=== PATIENT | male | born 1955 | race Caucasian/White ===

== ENCOUNTER → 2019-08-28 | Outpatient (CLI) | payer BC | LOC: COL.VAS 13:18 | DX: I10 Essential (primary) hypertension (principal); I34.0 Nonrheumatic mitral (valve) insufficiency; R06.02 Shortness of breath ==

== ENCOUNTER → 2020-09-27 | Outpatient (CLI) | payer BC | LOC: COL.VAS 12:28 | DX: I27.20 Pulmonary hypertension, unspecified (principal) ==

== ENCOUNTER 2024-02-21 09:43 | Emergency (ER) | payer MEDICARE, BC ==
[~2024-02-21] VITALS: Ht 193 cm; Wt 136.4 kg
[2024-02-21 09:44] VITALS: TEMP 98.4
[2024-02-21 10:03] LABS: BASO % 0.5 % (0.0-2.0); EOS # 0.1 K/mm3 (0.0-0.7); EOS % 3.2 % (0.0-4.0); GRAN % 67.8 % (42.2-75.2); HEMOGLOBIN 10.9 g/dl (13.5-18.0); LYMPH # 0.8 K/mm3 (1.2-3.4); MEAN CELL VOLUME 96 fl (80.0-100.0); MEAN CORPUSCULAR HEMOGLOBIN 32 pg (27-31); MEAN CORPUSCULAR HGB CONC 33 g/dl (33.0-37.0); MEAN PLATELET VOLUME 9.2 fl (7.4-10.4); MONO # 0.5 K/mm3 (0.1-0.6); MONO % 10.6 % (1.7-9.3); PLATELET COUNT 196 K/mm3 (130-400); RED BLOOD COUNT 3.44 M/mm3 (4.20-5.60); REDCELL DISTRIBUTION WIDTH-CV 13.4 % (11.5-14.5)
[2024-02-21 10:06] LABS: HEMATOCRIT 32.9 % (42.0-52.0)
[2024-02-21 10:08] LABS: INR 2.6 (0.8-3.0); PROTHROMBIN TIME 27.7 SECONDS (9.7-12.8)
[2024-02-21 10:26] LABS: ALBUMIN 3.5 g/dL (3.4-4.8); BILIRUBIN,TOTAL 0.5 mg/dL (0.2-1.2); CALCIUM 8.9 mg/dL (8.4-10.2); CREATININE, serum 1.31 mg/dL (0.72-1.25); POTASSIUM 3.9 mEq/L (3.5-4.5); TOTAL PROTEIN 7.3 g/dl (6.2-8.1)
[2024-02-21 10:58] VITALS: BP 111/90; PULSE 63
== END 2024-02-21 11:07 | disposition home or self-care (01) ==
LOC: COL.ER 09:43
PROVIDERS: Personal Emergency Response Attendant
DX: S09.90XA Unspecified injury of head, initial encounter (principal); R00.1 Bradycardia, unspecified; J44.9 Chronic obstructive pulmonary disease, unspecified; Z99.81 Dependence on supplemental oxygen; Z79.01 Long term (current) use of anticoagulants; W01.198A Fall on same level from slipping, tripping and stumbling with subsequent striking against other object, initial encounter; Y93.01 Activity, walking, marching and hiking

== ENCOUNTER 2024-04-14 16:27 | Inpatient (IN) | payer MEDICARE ==
[~2024-04-14] VITALS: Ht 190.5 cm; Wt 139.9 kg
[2024-04-14 16:44] LABS: BASO % 0.6 % (0.0-2.0); EOS # 0.2 K/mm3 (0.0-0.7); EOS % 4.2 % (0.0-4.0); GRAN # 3.4 K/mm3 (1.4-6.5); GRAN % 68.5 % (42.2-75.2); HEMOGLOBIN 10.5 g/dl (13.5-18.0); LYMPH # 0.8 K/mm3 (1.2-3.4); LYMPH % 15.3 % (20.0-51.0); MEAN CELL VOLUME 98 fl (80.0-100.0); MEAN CORPUSCULAR HEMOGLOBIN 33 pg (27-31); MEAN CORPUSCULAR HGB CONC 34 g/dl (33.0-37.0); MEAN PLATELET VOLUME 9.7 fl (7.4-10.4); MONO # 0.5 K/mm3 (0.1-0.6); MONO % 10.6 % (1.7-9.3); PLATELET COUNT 177 K/mm3 (130-400); RED BLOOD COUNT 3.17 M/mm3 (4.20-5.60); REDCELL DISTRIBUTION WIDTH-CV 12.7 % (11.5-14.5)
[2024-04-14 16:46] LABS: HEMATOCRIT 30.9 % (42.0-52.0)
[2024-04-14 17:49] LABS: INR 2.6 (0.8-3.0); PROTHROMBIN TIME 28.2 SECONDS (9.7-12.8)
[2024-04-14 18:05] LABS: ALBUMIN 3.3 g/dL (3.4-4.8); BILIRUBIN,TOTAL 0.2 mg/dL (0.2-1.2); CALCIUM 9.6 mg/dL (8.4-10.2); CREATININE, serum 1.34 mg/dL (0.72-1.25); POTASSIUM 4.1 mEq/L (3.5-4.5); TOTAL PROTEIN 6.6 g/dl (6.2-8.1)
[2024-04-14] MEDS ORDERED: Phytonadione 10 MG in NS 50 ML IV ONE (19:00)
[2024-04-14] MEDS ORDERED: hydrALAZINE 20 MG/ML 1 ML VIAL IV PRN (19:15)
[2024-04-14] MEDS ORDERED: Acetaminophen 325 MG TAB PO PRN (19:15)
[2024-04-14] MEDS ORDERED: Ondansetron 4 MG/2 ML VIAL IV PRN (19:15)
[2024-04-14] MEDS ORDERED: ABILIFY5 MG PO (19:19)
[2024-04-14] MEDS ORDERED: TYLENOL 325MG325 MG PO (19:20)
[2024-04-14] MEDS ORDERED: PROAIR HFA0.09 MG/AC IH (19:21)
[2024-04-14] MEDS ORDERED: LIPITOR20 MG PO (19:22)
[2024-04-14] MEDS ORDERED: ASPIRIN E.C. 8181 MG PO (19:22)
[2024-04-14] MEDS ORDERED: COREG 3.123.125 MG/T PO (19:23)
[2024-04-14] MEDS ORDERED: KLONOPIN 0.5MG0.5 MG PO (19:27)
[2024-04-14] MEDS ORDERED: LEXAPRO20 MG PO (19:28)
[2024-04-14] MEDS ORDERED: LEXAPRO 10MG10 MG PO (19:28)
[2024-04-14] MEDS ORDERED: TRELEGY ELLIPT1 EAC1 IH (19:31)
[2024-04-14] MEDS ORDERED: LASIX 20MG TABL20 MG PO (19:31)
[2024-04-14] MEDS ORDERED: MUCINEX 60600 MG/TA1 PO (19:32)
[2024-04-14] MEDS ORDERED: AVAPRO300 M1 PO (19:33)
[2024-04-14] MEDS ORDERED: LAMICTAL200 MG PO (19:33)
[2024-04-14] MEDS ORDERED: SINGULAIR 110 MG/TAB PO ×2 (19:34→19:35)
[2024-04-14] MEDS ORDERED: KEPPRA1000 MG PO (19:34)
[2024-04-14] MEDS ORDERED: DILANTIN 100MG100 MG PO (19:36)
[2024-04-14] MEDS ORDERED: CIALIS5 MG PO (20:03)
[2024-04-14] MEDS ORDERED: DILANTIN KAPSEA30 MG PO (20:06)
[2024-04-14] MEDS ORDERED: VITAMIN D31000 I1 PO (20:06)
[2024-04-14] MEDS ORDERED: COUMADIN4 MG PO (20:07)
[2024-04-14] MEDS ORDERED: Albuterol/Ipratropium 3 MG-0.5 MG/3 ML Neb Soln IH PRN (20:30)
[2024-04-14] MEDS ORDERED: levETIRAcetam 500 MG TAB PO SCH (21:00)
[2024-04-14] MEDS ORDERED: lamoTRIgine 100 MG TAB PO SCH (21:00)
[2024-04-14] MEDS ORDERED: Montelukast 10 MG TAB PO SCH (21:00)
[2024-04-14] MEDS ORDERED: clonazePAM 0.5 MG TAB PO SCH (21:00)
[2024-04-14] MEDS ORDERED: Carvedilol 3.125 MG TAB PO SCH (21:00)
[2024-04-14] MEDS ORDERED: Atorvastatin 20 MG TAB PO SCH (21:00)
[2024-04-14] MEDS ORDERED: Sennosides/Docusate 8.6-50 MG TAB PO SCH (21:00)
[2024-04-14 22:25] VITALS: BP 100/49; PULSE 58; TEMP 97.7
[2024-04-14 22:40] VITALS: BP 119/50; PULSE 59; TEMP 97.5
[2024-04-14 23:10] VITALS: BP 120/43; PULSE 57; TEMP 97.5
[2024-04-15] VITALS (16 sets, daily range): BP systolic 105–124; BP diastolic 40–69; PULSE 60–65; TEMP 97.4–98.2
--- NOTE | 2024-04-15 01:38 | NUR ---
RECEIVED PT FROM THE ED AND HE IS ACCOMPANIED BY HIS DAUGHTER. HE IS ABLE TO MOVE HIMSELF OVER FROM THE STRETCHER TO THE BED. HE IS ALERT AND ORIENTED. IS ABLE TO MOVE ALL EXTREMITIES EQUALLY. HIS PUPILS ARE EQUAL AND REACTIVE AT THIS TIME. HE HAS GLASSES IN PLACE FOR READING. HE IS ON 2 L NC. HE IS ABLE TO USE THE URINIAL WITH NO ASSISTANCE. DID EDUCATE THE PATIENT WE WILL NOT BE GETTING OUT OF THE BED AT THIS TIME. ALSO HE IS TO RECEIVE A UNIT OF [facility]FP AND WE DISCUSSED WHAT IT WAS FOR AND HE WILL NEED TO SIGN A CONSENT FORM. DISCUSSED WE WILL BE PERFORMING EVERY 2 HOUR NEURO CHECKS TO WATCH FOR ANY CHANGES WITH HIS HEAD BLEED. HE IS AGREEABLE AND VERY PLEASANT. HE HAS ONE IV SITE LOCKED. CALL OMEGA IS AT THE BEDSIDE.
[2024-04-15] MEDS ORDERED: Budesonide Neb Susp 0.5 MG/2 ML AMP IH SCH (07:00)
[2024-04-15 07:43] LABS: BASO % 0.5 % (0.0-2.0); EOS # 0.2 K/mm3 (0.0-0.7); EOS % 4.6 % (0.0-4.0); GRAN # 2.5 K/mm3 (1.4-6.5); GRAN % 62.5 % (42.2-75.2); LYMPH # 0.8 K/mm3 (1.2-3.4); LYMPH % 19.5 % (20.0-51.0); MEAN CELL VOLUME 96 fl (80.0-100.0); MEAN CORPUSCULAR HGB CONC 34 g/dl (33.0-37.0); MEAN PLATELET VOLUME 9.4 fl (7.4-10.4); MONO # 0.5 K/mm3 (0.1-0.6); MONO % 12.4 % (1.7-9.3); PLATELET COUNT 161 K/mm3 (130-400); RED BLOOD COUNT 3.01 M/mm3 (4.20-5.60); REDCELL DISTRIBUTION WIDTH-CV 12.5 % (11.5-14.5)
[2024-04-15 07:53] LABS: INR 1.5 (0.8-3.0); PROTHROMBIN TIME 16.3 SECONDS (9.7-12.8)
[2024-04-15 07:55] LABS: CALCIUM 9.6 mg/dL (8.4-10.2); CREATININE, serum 1.2 mg/dL (0.72-1.25)
[2024-04-15 08:08] LABS: HEMATOCRIT 28.8 % (42.0-52.0); HEMOGLOBIN 9.8 g/dl (13.5-18.0); MEAN CORPUSCULAR HEMOGLOBIN 33 pg (27-31)
[2024-04-15] MEDS ORDERED: Fluticasone/Umeclidinium/Vilanterol **** subs to Budesonide + Umeclid/Vilant IH SCH (09:00)
[2024-04-15] MEDS ORDERED: ARIPiprazole 5 MG TAB PO SCH (09:00)
[2024-04-15] MEDS ORDERED: [UNRECOGNIZED DRUG - REMARK] PO SCH (09:00)
[2024-04-15] MEDS ORDERED: Furosemide 20 MG TAB PO SCH (09:00)
[2024-04-15] MEDS ORDERED: Escitalopram 10 MG TAB PO SCH ×2 (09:00→11:45)
[2024-04-15] MEDS ORDERED: Losartan 50 MG TAB PO SCH (09:00)
[2024-04-15] MEDS ORDERED: Umeclidinium/Vilanterol 62.5-25 MCG INHALATION/INHALER IH SCH (09:00)
[2024-04-15] MEDS ORDERED: Prothrombin Complex Human 2,000 UNITS in Water For Injection,Sterile 80 ML IV SCH (10:00)
--- NOTE | 2024-04-15 10:00 | NUR ---
Patient resting in bed, alert and oriented x 4, VSS. Getting 2-3L O2 NC, his baseline. Telemetry in place. Denies any pain or discomfort. Assessment completed, meds given. No further needs at this time. Call light within reach. Bed alarm on.
--- NOTE | 2024-04-15 10:09 | NUR ---
Initial visit; Patient thanked Credit Coordinator for looking in on him this morning and wishing him well. Patient had no spiritual needs to address this morning. Credit Coordinator wished him well.
[2024-04-15] MEDS ORDERED: guaiFENesin 200 MG TAB PO SCH (14:00)
[2024-04-15] MEDS ORDERED: Iohexol 300 - 100 ML VIAL IV ONE (14:48)
[2024-04-15] MEDS ORDERED: NS 100 ML IV SCH (14:49)
[2024-04-15 15:26] LABS: INR 1.5 (0.8-3.0); PROTHROMBIN TIME 15.7 SECONDS (9.7-12.8)
--- NOTE | 2024-04-15 15:44 | NUR ---
THIS RN IS TAKING OVER CARE FOR THIS PATIENT. REPORT RECEIVED FROM RAMONA BAZZI. PATIENT IS RESTING IN BED. ALERT AND ORIENTED. DAUGHTER AT BEDSIDE. DENIES NEEDS OR CONCERNS AT THIS TIME.
--- NOTE | 2024-04-15 15:45 | NUR ---
Report given to Juni BAZZI.
[2024-04-15] MEDS ORDERED: Phytonadione (Vitamin K) 5 MG/5 ML Oral Susp PO ONE (16:30)
--- NOTE | 2024-04-15 17:22 | NUR ---
Representative Personal Service entered patient's room and patient was on a phone call. Patient requested SW speak with his daughter, Tejal (ph#[phone]) out in the hallway. Per Tejal, patient lives at assisted living at [facility] and sees Dr. Rodriguez for primary care. Patient uses [facility] for medications and also has a walker at home for ambulation. Patient also uses continuous oxygen at baseline. When asked about ADLS, Tejal stated patient does "okay" and has assistance when needed. Patient has DPOA-HC in EMR designating Tejal. CHUNG inquired about discharge plan and Tejal advised patient will likely want to return to [place] and she stated he was getting therapy services from [facility]. Discharge Plan; Return to [facility] [place]
--- NOTE | 2024-04-15 20:21 | NUR ---
UPON SHIFT ASSESSMENT, BILL WAS AWAKE IN BED AND AXO X4. EXP &INSP WHEEZES AUDIBLE AND PRODUCTIVE COUGH NOTED. ASSESSMENT QUESTIONS REVEALED SLIGHT MEMORY DEFICIT. NEUROS WNL AND VS ARE WNL. O2 NC 2L AND NO INCREASED WOB NOTED. CALL LIGHT WITHIN REACH BED ALARM ON.
[2024-04-15] MEDS ORDERED: guaiFENesin ER 600 MG **** subs to guaiFENesin 200 MG PO SCH (21:00)
[2024-04-16] VITALS (10 sets, daily range): BP systolic 95–115; BP diastolic 57–87; PULSE 61–79; TEMP 97.4–98.3
--- NOTE | 2024-04-16 02:30 | NUR ---
NEUROS WNL. PATIENT RESTING SUPINE. WAS ABLE TO SHIFT POSITION INDEPENDENTLY-SKIN ASSESSMENT PERFORMED. SKIN NORMAL.
--- NOTE | 2024-04-16 04:32 | NUR ---
CALL PLACED TO HOSPITALIST LUPILLO CONCERNING PREVIOUS ORDER TO TRANSFUSE PLASMA. TORB TO HOLD TRANSFUSION UNTIL A.M. INR RESULTED GIVEN.
[2024-04-16 05:29] LABS: BASO % 0.2 % (0.0-2.0); EOS # 0.2 K/mm3 (0.0-0.7); EOS % 4.1 % (0.0-4.0); GRAN # 2.9 K/mm3 (1.4-6.5); GRAN % 65.8 % (42.2-75.2); HEMATOCRIT 27.1 % (42.0-52.0); HEMOGLOBIN 9.2 g/dl (13.5-18.0); LYMPH # 0.8 K/mm3 (1.2-3.4); LYMPH % 18.2 % (20.0-51.0); MEAN CELL VOLUME 94 fl (80.0-100.0); MEAN CORPUSCULAR HEMOGLOBIN 32 pg (27-31); MEAN CORPUSCULAR HGB CONC 34 g/dl (33.0-37.0); MONO # 0.5 K/mm3 (0.1-0.6); MONO % 11.5 % (1.7-9.3); PLATELET COUNT 147 K/mm3 (130-400); RED BLOOD COUNT 2.88 M/mm3 (4.20-5.60); REDCELL DISTRIBUTION WIDTH-CV 12.3 % (11.5-14.5)
[2024-04-16 05:33] LABS: INR 1.3 (0.8-3.0); PROTHROMBIN TIME 14.1 SECONDS (9.7-12.8)
--- NOTE | 2024-04-16 05:38 | NUR ---
CALL PLACED TO HOSPITALIST LUPILLO, INR RESULTED-1.3. TORB TO CONTINUE HOLD ON PLASMA TRANSFUSION GIVEN-UNIT NOT TRANSFUSED AT THIS TIME.
[2024-04-16 05:50] LABS: CALCIUM 9.4 mg/dL (8.4-10.2); CREATININE, serum 1.1 mg/dL (0.72-1.25); POTASSIUM 4.3 mEq/L (3.5-4.5)
--- NOTE | 2024-04-16 08:00 | NUR ---
Patient laying in bed, A&Ox4. VSS 2L NC O2. VSS. IV CDI. SCD bilateral legs. Denies pain and discomfort. Seizre precautions in place. Nurse ordered breakfast for the patient. No further needs expressed. Call light within reach. Bed alarm on
[2024-04-16] MEDS ORDERED: Cholecalciferol (Vit D3) 1000 Units TAB PO SCH (09:00)
[2024-04-16] MEDS ORDERED: Escitalopram 10 MG TAB PO SCH (09:00)
--- NOTE | 2024-04-16 20:18 | NUR ---
PATIENT RESTING IN BED WATCHING TV. DENIES ANY PAIN AT THIS TIME. RESPIRATORY THERAPY AT BEDSIDE FOR BREATHING TREATMENT. CALL LIGHT IS WITHIN REACH. BED IS LOCKED AND IN LOW POSITION.
[2024-04-17] VITALS (7 sets, daily range): BP systolic 102–122; BP diastolic 54–65; PULSE 61–69; TEMP 98–98.3
[2024-04-17 05:49] LABS: HEMATOCRIT 25.4 % (42.0-52.0); HEMOGLOBIN 8.8 g/dl (13.5-18.0)
[2024-04-17] MEDS ORDERED: FERROUS SU325 MG/TAB PO (08:19)
[2024-04-17] MEDS ORDERED: Ferrous Sulfate 325 MG TAB PO SCH (09:00)
--- NOTE | 2024-04-17 09:48 | NUR ---
Patient is on chair, alert and oriented x 4, VSS. Denies any pain or discomfort. Just worked with OT. Assessment completed, meds given. No further needs at this time. Call [facility] within reach.
--- NOTE | 2024-04-17 11:09 | NUR ---
Technical Cable Jointer spoke with Hospitalist who rounded on patient and discussed a SNF stay with patient, who is agreeable to this plan. CHUNG contacted [facility] and faxed clinical updates with discharge orders. [facility] advised they have a bed available for patient and can pickling solution maker at 1300. CHUNG provided transport time to patient's daughter, Tejal who is also agreeable to plan. CHUNG met with patient to present and review IM form. Patient verbalized understanding and is agreeable with discharge plan to SNF today at [facility]. CHUNG placed form in chart and provided copy to patient. Discharge Plan: [facility]
--- NOTE | 2024-04-17 11:35 | NUR ---
Staff reviewed COPD diagnosis and signs and symptoms of exacerbation. Reviewed the [employer] action plan/Zone sheet for COPD and discussed specific actions the patient can take to reduce risk of further COPD exacerbation. Referral sent to [facility] with patient's permission. Staff will follow up with patient's daughter (Tejal) to see about scheduling / transportation into program. Contact information given for the department.
--- NOTE | 2024-04-17 12:53 | NUR ---
Report given to JLUIS Griffith. IV access removed. 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 Pt ready.
== END 2024-04-17 13:00 | DRG 86 ==
LOC: COL.ER 16:27 → MEDICAL 19:01
PROVIDERS: Emergency Medicine; Internal Medicine; Physician Assistant; ADMIT Internal Medicine
PROC: 30233K1 Transfusion of Nonautologous Frozen Plasma into Peripheral Vein, Percutaneous Approach (ICD-10-PCS; principal; 2024-04-14)
DX: S06.6X0A Traumatic subarachnoid hemorrhage without loss of consciousness, initial encounter (principal); J96.11 Chronic respiratory failure with hypoxia; I10 Essential (primary) hypertension; E78.5 Hyperlipidemia, unspecified; E66.01 Morbid (severe) obesity due to excess calories; J44.9 Chronic obstructive pulmonary disease, unspecified; F41.9 Anxiety disorder, unspecified; F32.A Depression, unspecified; K21.9 Gastro-esophageal reflux disease without esophagitis; G47.33 Obstructive sleep apnea (adult) (pediatric); R59.0 Localized enlarged lymph nodes; G40.909 Epilepsy, unspecified, not intractable, without status epilepticus; R91.8 Other nonspecific abnormal finding of lung field; D64.9 Anemia, unspecified; R40.2412 Glasgow coma scale score 13-15, at arrival to emergency department; J32.8 Other chronic sinusitis; W01.0XXA Fall on same level from slipping, tripping and stumbling without subsequent striking against object, initial encounter; Z86.711 Personal history of pulmonary embolism; Z79.01 Long term (current) use of anticoagulants; Y93.89 Activity, other specified; Y92.89 Other specified places as the place of occurrence of the external cause; Z99.81 Dependence on supplemental oxygen; Z79.899 Other long term (current) drug therapy; Z79.82 Long term (current) use of aspirin; Z90.49 Acquired absence of other specified parts of digestive tract; Z68.38 Body mass index [BMI] 38.0-38.9, adult
CPT/HCPCS: J3430; Q9967

== ENCOUNTER 2024-04-17 18:40 | Emergency (ER) | payer MEDICARE ==
[~2024-04-17] VITALS: Ht 182.9 cm; Wt 138.6 kg
[~2024-04-17 18:40] MED LIST: ABILIFY5 MG PO; ASPIRIN E.C. 8181 MG PO; AVAPRO300 M1 PO; CIALIS5 MG PO; COREG 3.123.125 MG/T PO; COUMADIN4 MG PO; DILANTIN 100MG100 MG PO; DILANTIN KAPSEA30 MG PO; FERROUS SU325 MG/TAB PO; KEPPRA1000 MG PO; KLONOPIN 0.5MG0.5 MG PO; LAMICTAL200 MG PO; LASIX 20MG TABL20 MG PO; LEXAPRO 10MG10 MG PO; LEXAPRO20 MG PO; LIPITOR20 MG PO; MUCINEX 60600 MG/TA1 PO; PROAIR HFA0.09 MG/AC IH; SINGULAIR 110 MG/TAB PO; TRELEGY ELLIPT1 EAC1 IH; TYLENOL 325MG325 MG PO; VITAMIN D31000 I1 PO
[2024-04-17 18:41] VITALS: TEMP 98.5
[2024-04-17] MEDS ORDERED: Acetaminophen 325 MG TAB PO ONE (20:00)
[2024-04-17 21:06] VITALS: BP 153/71; PULSE 64
== END 2024-04-17 21:06 | disposition home or self-care (01) ==
LOC: COL.ER 18:40
DX: S00.93XA Contusion of unspecified part of head, initial encounter (principal); Z86.711 Personal history of pulmonary embolism; Z79.01 Long term (current) use of anticoagulants; Y92.091 Bathroom in other non-institutional residence as the place of occurrence of the external cause; W01.198A Fall on same level from slipping, tripping and stumbling with subsequent striking against other object, initial encounter